=== PATIENT | female | born 1995 | race Hispanic/Latino ===

== ENCOUNTER 2016-12-27 19:19 | Emergency (ER) | payer OTHER ==
[~2016-12-27] VITALS: Ht 157.5 cm; Wt 79.5 kg
[~2016-12-27 19:19] MED LIST: DOCU-41 PO; NIFE30TA92 PO; OXYC1TAB24 PO; PREN-12 PO
[2016-12-27 19:24] VITALS: BP 139/82; PULSE 119; RESP 18; O2SAT 98
[2016-12-27 20:19] LABS: BASOPHILS % (AUTO) 0.4 % (0-3); EOSINOPHILS % (AUTO) 0.5 % (0-5); MONOCYTES % (AUTO) 4.6 % (4-12); Mean Corpuscular Hemoglobin 30.1 pg (27.0-35.0); Mean Corpuscular Volume 88.1 fL (81-100); Platelet Count 228 bil/L (150-400)
--- NOTE | 2016-12-27 20:39 | ED.REPORT ---
HPI-General Illness Date of Service Dec 27, 2016 ED Provider: Dr. Gabe Walsh MD A 21 year old female with a history of asthma presents to the ED with a fever of 102F and shaking chills that began a few days ago. Patient reports experiencing back pain, myalgias, headache and general malaise for the past 3 days. Patient denies any recent diarrhea, neck stiffness, vomiting, dysuria, sore throat, or chance of . Her symptoms have become progressively worse since onset. Patient is currently up to date on all of her vaccinations including the seasonal flu vaccine. Nursing Notes Stated Complaint: HEADACHE, BACK ACHE, EYES BURNING, FEVER, CHILLS Chief Complaint: General Complaint Nursing Notes Reviewed: Yes Allergies: Coded Allergies: No Known Allergies (Unverified , 12/27/16) Scheduled Nifedipine ER (Adalat CC) 30 Mg Tablet 60 MG PO DAILY Vit W-Ca,Fe,FA(<1 mg) ( Formula) 1 Each Tablet 1 EACH PO DAILY Scheduled PRN Docusate Sodium (Colace) 100 Mg Capsule 100 MG PO DAILY PRN PRN For Constipation oxyCODONE-Acetaminophen 5-325 mg (oxyCODONE-Acetaminophen 5-325 mg) 1 Each Tablet 1-2 TAB PO Q4H PRN PRN For Pain General Time Seen by MD: 20:39 Chief Complaint Fever Hx Obtained From: Patient Arrived By: Walk-in Sudden in Onset?: No Onset Occurred: 3 days ago Symptom Duration: Since onset Associated with: Reports: Fever, Denies: Vomiting Pertinent Negative: Pt denies other symptoms Recent Healthcare: No recent doctor visit, No recent hospitalization Past Medical History Past Medical History Asthma Pre-eclampsia Past Surgical History None reported. Smoking History Never Smoker Social History Other Social History: Good social support, Local resident Ambulatory Status Independent Review of Systems Full Review of Systems Constitutional: Reports: Chills, Fever, Malaise Eyes: Denies: Blurred left, Blurred right Ears / Nose / Throat: Denies: Ear drainage left, Sore throat Respiratory: Denies: Dyspnea on exertion, Parox nocturnal dyspnea Cardiovascular: Denies: Chest pain GI: Denies: Abdominal pain, Diarrhea, Vomiting Female: Denies: Dysuria, Musculoskeletal: Reports: Back pain (right flank.), Denies: Neck pain Endocrine: Denies: Cold intolerance, Heat intolerance Neurologic: Denies: Focal weakness, Headache Complete sys rev & neg: except as marked. Physical Exam Vital Signs Vital Signs Date Time Temp Pulse Resp B/P Pulse Ox O2 Delivery O2 Flow Rate FiO2 12/28/16 00:37 36.8 81 18 97/64 96 Room Air 12/27/16 21:00 37.7 110 18 123/60 98 Room Air 12/27/16 19:24 37.0 119 18 139/82 98 Room Air Initial VS: Reviewed Extremities: Vascular intact, Neuro intact, No swelling, No tenderness Skin: Warm, Dry, No cyanosis Neurologic: Alert, Oriented, Nonfocal Psychiatric: Mood/affect normal, Behavior normal, Normal thought content General/Constitutional: Awake, Alert, No acute distress Febrile Head / Eyes: Atraumatic, Normocephalic, PERRL ENT: Atraumatic, Airway patent, Mucous membranes moist, Pharynx NL Neck: Atraumatic, Supple, No meningismus, Full range of motion Respiratory / Chest: Atraumatic, Breath sounds NL, Breath sounds = bilat, No respiratory distress Cardiovascular: Regular rhythm, Heart sounds NL Heart Rate / Rhythm: Positive: Tachycardia Abdomen: Atraumatic, Soft, Non-tender Interpretation & Diagnostics Lab Results Interpretation Result Diagram: 12/27/16195812/27/161958 Test 12/27/16 19:59 12/27/16 20:20 White Blood Count 11.0th/mm3 (3.8-10.1) Red Blood Count 4.45mil/mm3 (3.90-5.20) Hemoglobin 13.4g/dL (12.0-15.6) Hematocrit 39.2% (35.0-46.0) Mean Corpuscular Volume 88.1fL (81-100) Mean Corpuscular Hemoglobin 30.1pg (27.0-35.0) Mean Corpuscular Hemoglobin Concent 34.2% (32.0-37.0) Red Cell Distribution Width 12.8% (12.3-15.4) Platelet Count 228bil/L (150-400) Neutrophils (%) (Auto) 86.0% (40-74) Lymphocytes (%) (Auto) 8.2% (14-46) Monocytes (%) (Auto) 4.6% (4-12) Eosinophils (%) (Auto) 0.5% (0-5) Basophils (%) (Auto) 0.4% (0-3) Sodium Level 139mEq/L (134-144) Potassium Level 3.9mEq/L (3.5-5.2) Chloride Level 104mEq/L (97-108) Carbon Dioxide Level 20mmol/L (18-29) Blood Urea Nitrogen 11mg/dL (6-20) Creatinine 0.57mg/dL (0.57-1.00) Estimat Glomerular Filtration Rate 190mL/min (>59) Glucose Level 112mg/dL (60-99) Calcium Level 9.4mg/dL (8.5-10.1) Total Bilirubin 0.3mg/dL (0.0-1.2) Aspartate Amino Transf (AST/SGOT) 20U/L (0-50) Alanine Aminotransferase (ALT/SGPT) 21U/L (0-32) Alkaline Phosphatase 112U/L (25-150) Total Protein 7.9g/dL (6.4-8.4) Albumin 4.5g/dL (3.4-5.0) Hold [place] Top Tube Received (Received) Urine Color Yellow (YELLOW) Urine Appearance Clear (CLEAR,HAZY) Urine pH 7.5 (5.0-8.0) Urine Specific [place] 1.015 (1.003-1.035) Urine Protein Negativemg/dL (NEG,TRACE) Urine Glucose (UA) Negativemg/dL (NEGATIVE) Urine Ketones Negativemg/dL (NEGATIVE) Urine Occult Blood Negative (NEGATIVE) Urine Nitrite Negative (NEGATIVE) Urine Bilirubin Negative (NEGATIVE) Urine Urobilinogen Normalmg/dL (NORMAL) Urine Leukocyte Esterase Trace (NEGATIVE) Urine RBC 0-2/hpf (0-2) Urine WBC 0-5/hpf (0-5) Urine Epithelial Cells Moderate/hpf (NONE-MOD) Urine Crystals None seen (NONE SEEN) Urine Bacteria Few/hpf (NONE-FEW) Urine Hyaline Casts None/lpf (NONE) Urine Granular Casts None seen (NONE SEEN) Urine Waxy Casts None seen (NONE SEEN) Urine Red Blood Cell Casts None seen (NONE SEEN) Urine White Blood Cell Casts None seen (NONE SEEN) Urine Mucus None seen (None Seen) Urine Trichomonas None seen (NONE SEEN) Urine Yeast None (NONE SEEN) Urinalysis Comment None Urine Culture Reflexed Indicated Lab Results Interpretation: Influenza negative Re-Eval/Medical Decision Med Decision/Clinical Course Fever and flank pain. Urine appears to have an infection. Most consistent with pyelonephritis. No signs or symptoms consistent with meningitis. No headache. No neck stiffness. Lumbar puncture not indicated. Chest x-ray not indicated. IV ceftriaxone and a course of Keflex. Close outpatient follow-up. Time of Eval: 00:00 Patient Status: Condition improved Re-Evaluation/Progress Note: Patient is rechecked. She is informed of her results. All of his questions about the intended treatment plan are addressed. The patient understands and agrees with the plan to discharge with follow up. Counseled Regarding: Diagnosis, Lab results, Need for follow-up, When/why to return to ED Discharge & Departure Primary Impression: Pyelonephritis Disposition: Home Discharge Condition All VS Reviewed: Yes Condition: Improved Patient Instructions: Back Pain (ED), Fever in Adults (ED) Additional Instructions: Thank you for entrusting us with your care today. Your emergency department evaluation today including examination and lab work are reassuring that there is no emergent cause for concern at this time and I believe your symptoms are due to pyelonephritis. However, a clear cause of your symptoms was not identified so please schedule a follow-up appointment with your primary care physician in the next week for a recheck. Take Keflex 4 times daily for the next 10 days. Take Tylenol every 6-8 hours as needed for pain/fever. Please return to the emergency department for any new or worsening conditions including any neck stiffness, shortness of breath, fevers, chills, nausea, vomiting, lightheadedness, numbness/tingling or weakness. Referrals: Vinayak England MD (PCP) Scribe Attestation Portions of this note were transcribed by Mireya Dow. I, Dr. Walsh, personally performed the history, physical exam and medical decision-making; I reviewed and confirmed the accuracy of the information in the transcribed note. Signed by: Mireya Dow, 12/28/16. copies to: Vinayak England MD, Todd P DO Dec 27, 2016 20:39 MIREYA DOW Dec 27, 2016 20:43
[2016-12-27 20:48] LABS: APPEARANCE,URINE CLEAR (CLEAR,HAZY); COLOR,URINE YELLOW (YELLOW); OCCULT BLOOD,URINE NEGATIVE (NEGATIVE); PH,URINE 7.5 (5.0-8.0); UROBILINOGEN,URINE NORMAL (NORMAL)
[2016-12-27] MEDS ORDERED: 0.9% Sodium Chloride 1,000 ML IV SCH (20:50)
[2016-12-27 21:00] VITALS: BP 123/60; PULSE 110; RESP 18; O2SAT 98
[2016-12-27] MEDS ORDERED: cefTRIAXone Inj 2,000 MG in Dextrose 5% Minibag Plus 50 ML IV ONE (22:50)
[2016-12-28] MEDS ORDERED: Sodium Chloride LOK Flush 10 mL Syringe IVFLUSH SCH (00:30)
[2016-12-28 00:37] VITALS: BP 97/64; PULSE 81; RESP 18; O2SAT 96
== END 2016-12-28 00:38 | disposition home or self-care (01) ==
LOC: SED 19:19
DX: N10 Acute pyelonephritis (principal)
CPT/HCPCS: 36415; 80053; 81000; 81025; 85025; 87086; 87804; 87880; 96361; 96365; 99285; J0696; J7030